=== PATIENT | female | born 1945 ===

== ENCOUNTER 2017-01-12 07:07 | Day surgery (SDC) | payer MEDICARE ==
[2015-08-25 11:37] VITALS: BMI 31.1
[2017-01-12] MEDS ORDERED: Dextrose 5%/0.45% NS 1,000 ML IV SCH (08:00)
[2017-01-12] MEDS ORDERED: Albuterol HFA 90 mcg/actuation (8 g) ONE (09:07)
[2017-01-12] MEDS ORDERED: Ofloxacin 0.3% Ophth Soln ONE (10:09)
[2017-01-12] MEDS ORDERED: Midazolam 2 MG/2 ML VIAL ONE (10:12)
[2017-01-12] MEDS ORDERED: Propofol 10 mg/ml Inj (20 ML) ONE (10:12)
[2017-01-12] MEDS ORDERED: Lactated Ringer's 1,000 ML IV ONE ×2 (10:15→11:30)
[2017-01-12 12:59] VITALS: BP 92/62; PULSE 85; RESP 18; TEMP 97; O2SAT 100
--- NOTE | 2017-01-12 21:50 | OP ---
PROCEDURE DATE: 01/12/2017 PREOPERATIVE DIAGNOSIS: Left chronic otitis media. POSTOPERATIVE DIAGNOSIS: Left chronic otitis media. PROCEDURE: Left myringotomy with tubes. SIGNIFICANT FINDINGS: Fluid noted behind the TM on the left side. DESCRIPTION OF PROCEDURE: Patient was brought into the room, placed in supine position. Anesthesia was initiated through face mask. Patient was draped in the usual manner. The left ear was brought under view using operative microscope and ear speculum. Radial incision was made in the anterior inferior quadrant. Fluid was noted behind the TM and suctioned out. Tube was placed. Suction was placed. The ear speculum and microscope were taken out of position. The patient was taken off anesthesia, taken to recovery room in stable manner. Odell Vale MD
== END 2017-01-12 13:04 | disposition home or self-care (01) ==
LOC: C.SDS 07:07
PROVIDERS: ATTEND Otolaryngology
DX: H66.12 Chronic tubotympanic suppurative otitis media, left ear (principal)
CPT/HCPCS: 69436; 82948; J2250; J3010; J7120